=== PATIENT | male | born 1970 | race Caucasian/White ===

== ENCOUNTER 2016-08-14 12:32 | Emergency (ER) | payer OTHER ==
[~2016-08-14] VITALS: Ht 175.3 cm; Wt 99.3 kg
[~2016-08-14 12:32] MED LIST: AUGMENTIN875 MG PO; CRESTOR20 MG PO; CYMBALTA60 MG PO; ENDOCET 5-3251 EACH PO; EVEKEO10 MG PO; IBUPROFEN200 M1 PO; KEFLEX500 MG PO; PERCOCET 10/1 TABLET PO; SINGULAIR10 MG PO; VYVANSE70 MG PO
[2016-08-14] MEDS ORDERED: ADDERALL20 MG PO (13:38)
[2016-08-14] MEDS ORDERED: INDOMETHACIN25 MG PO (13:39)
[2016-08-14] MEDS ORDERED: KEFLEX500 MG PO (13:39)
[2016-08-14] MEDS ORDERED: OXYCODONE-APAP1 EACH PO (13:39)
[2016-08-14 14:01] LABS: EOSINOPHIL (%) 0.6 % (0-5); HEMATOCRIT 43.7 % (38.0-50.0); IMMATURE GRANULOCYTE (%) 0.1 % (0.0-0.7); IMMATURE GRANULOCYTE COUNT 0.1 K/uL; LYMPHOCYTE COUNT 1.9 K/uL (1.0-2.8); MCH 30.5 PG (29.0-34.0); MCHC 35.5 G/DL (30.0-36.0); MCV 85.9 FL (86-99); MEAN PLAT.VOLUME 10.3 uM^3 (9.0-12.4); MONOCYTE COUNT 0.8 K/uL (0-0.8); NEUTROPHIL (%) 60.4 % (45-76); NEUTROPHIL COUNT 4.1 K/uL (1.8-6.4); PLATELET COUNT 258 K/uL (156-360); RBC DIS.WIDTH-CV 13.5 % (11.8-14.6); RBC DIS.WIDTH-SD 41.8 % (39-53); RED BLOOD COUNT 5.09 M/uL (4.00-5.50); WHITE BLOOD COUNT 6.8 K/uL (4.1-10.2)
[2016-08-14] MEDS ORDERED: INDOCIN25 MG PO (15:26)
[2016-08-14] MEDS ORDERED: PRILOSEC20 MG PO (15:26)
[2016-08-14 16:16] VITALS: BP 116/77
== END 2016-08-14 16:17 | disposition home or self-care (01) ==
LOC: EME 12:32
PROVIDERS: Emergency Medicine
DX: S62.521A Displaced fracture of distal phalanx of right thumb, initial encounter for closed fracture (principal); X58.XXXA Exposure to other specified factors, initial encounter; G89.29 Other chronic pain; Z79.891 Long term (current) use of opiate analgesic
CPT/HCPCS: 73140; 85025; 86140; 87040; 99281; 99283; J1885